=== PATIENT | male | born 1965 | race Caucasian/White ===

== ENCOUNTER → 2021-06-25 12:40 | Outpatient (CLI) | payer OTHER, SELFPAY ==
--- NOTE | ~2021-06-25 | XR_ITS ---
XR hand RT 2V 06/25/2021 12:57 Indication: Right second finger pain after injury 2 weeks ago. Procedure: 3 views right hand Comparison: No prior studies for comparison. Findings: There is an oblique intra-articular fracture proximal aspect of the second proximal phalanx with approximately one cortical bone width ulnar displacement. There is old healed fifth metacarpal fracture. Mild polyarticular osteoarthritis. Impression: 1: Acute oblique intra-articular fracture proximal aspect of the right second proximal phalanx with m ild ulnar displacement. Reviewed, dictated and finalized at location A. [employer] OPERATOR Impression: 1: Acute oblique intra-articular fracture proximal aspect of the right second p roximal phalanx with mild ulnar displacement.
== END ==
PROVIDERS: PCP Nurse Practitioner Family; Visit Provider Nurse Practitioner Family
DX: S62.91XA Unspecified fracture of right hand, initial encounter for closed fracture (principal); X58.XXXA Exposure to other specified factors, initial encounter
CPT/HCPCS: 73120

== ENCOUNTER 2021-06-28 02:59 | Day surgery (SDC) | payer OTHER, SELFPAY ==
--- NOTE | 2021-06-26 15:08 | PC.NURSE ---
Instructions given to [facility] staff Alanna who stated she already has the information, states will being NPO from midnight on and has no medications to take or hold. Staff stated will be brought by guard and the guard will remain with patient for entire visit. Report to the Outpatient Waiting Room, entrance under the green pavilion located off [facility], at time 1100 on date 06/25/2021. OR Time: 1300 your visitor will be asked a series of questions to screen for COVID 19 for your protection. Preoperative COVID Testing Results will be faxed to hospital from [facility] - We recommend that an adult stay with you for 24 hours following discharge. - We also recommend that you do not drive, make important decision, drink alcoholic beverages, or take any drugs that were not prescribed by your health care provider for at least 24 hours after your discharge time. Follow any additional instructions given to you from your surgeon. Telephone instructions given to [facility] staff Alanna and asked if any additional questions and then verbalized understanding. Patient advised to call surgeon office or pre surgery nurse liaison [phone] if any additional questions.
[2021-06-28] VITALS (9 sets, daily range): BP systolic 97–153; BP diastolic 56–93; PULSE 73–116; RESP 10–16; TEMP 36.3; O2SAT 93–99; BMI 24.3
--- NOTE | ~2021-06-28 | XR_ITS ---
EXAMINATION: XR surgery orthopedic EXAM DATE: 06/28/2021 14:01 INDICATION: ORIF RT 2nd Phalanx, proximal phalangeal base intra-articular fracture. TECHNIQUE: Fluoroscopy used during XR surgery orthopedic performed by Dr. Nikolai Davis MD. Radi ologist was not present for the imaging or procedure. Total fluoroscopic time of 240 seconds The D AP for this procedure was 0.68 mGym2. A total of 4 images sent to PACS from the exam. Correlation is made to an x-ray 06/25/2021. FINDINGS: There are 2 orthopedic screws bridging the right 2nd proximal phalangeal base intra-articu lar fracture. Alignment and position is anatomic. Correlate with procedure note. IMPRESSION: Fluoroscopy used during right 2nd proximal phalangeal ORIF. Reviewed, dictated and finalized at location B. PLASTERER
--- NOTE | 2021-06-28 07:14 | WPDHPUPDATE1 ---
History and Physical Update Update Date/Time: 06/28/21 07:14 History and Physical has been reviewed, including an updated exam of the patient. There are NO changes in the patient's condition. Risks, benefits, and alternatives have been discussed and questions answered. Patient agrees to proceed with procedure.
--- NOTE | 2021-06-28 11:24 | P.PNAN_ITS ---
Anes - Initial Pre Proc Eval Procedure: Operation Date: 06/28/21 13:00 Proposed Procedures p Open Reduction Internal Fixation Right Second Finger Proximal Phalanx - Nikolai Davis MD Date/Time: 06/28/21 11:24 Surgeon: Nikolai Davis MD Pre Op Diagnosis: Fx Rt Second Finger Proximal Phalanx Patient Data Age: 56 Gender: M Height: Weight: Allergies Allergy/AdvReac Type Severity Reaction Status Date / Time No Known Allergies Allergy Verified 06/28/21 11:16 Home Medications Medication Instructions Recorded Confirmed Type No Home Medications 06/26/21 06/26/21 History Patient hx anesthesia problems: none Family hx anesthesia problems: none Results Review: All pre-operative results and documents have been reviewed as part of the pre-operative evaluation. [facility] Past Medical History Medical History (Updated 06/28/21 @ 11:25 by Richard Araujo MD) Ex-smoker History of hepatitis C Social History Social History Substance use: unknown Substance use type: unknown Living arrangements: incarcerated Anes - Eval Final PreProcedure Day of Procedure 06/28/21 11:24 Patient weight: normal Heart: regular rate and rhythm Lungs: clear to auscultation Airway: Mallampati scale class II and special considerations poor dentition Neurological: alert and oriented Last oral intake: >/= 8 hours ASA classification: III Emergent: no Anesthetic plan: proceed Anesthesia type and monitoring: general LMA and standard monitoring Results Review: All pre-operative results and documents have been reviewed as part of the pre-operative evaluation. Informed Consent: The patient's anesthetic plan and its attendant risks and benefits were discussed with the patient/family/POA. Questions were solicited and answers provided to the satisfaction of the patient/family/POA.
[2021-06-28] MEDS: LACTATED RINGERS 1,000 ML 30 ML IV CONT ×2 (11:40→14:01)
[2021-06-28] MEDS: KETOROLAC 15 MG/ML VIAL (*BKC) IV PUSH (11:40)
[2021-06-28] MEDS: ACETAMINOPHEN 500 MG TABLET 1000 MG PO (11:40)
[2021-06-28] MEDS: ceFAZolin 2 GM/D5W 50 ML 2 GM/50 ML BAG IVPB (12:24)
--- NOTE | 2021-06-28 14:46 | P.OP_ITS ---
Procedure Note - Detailed Date of Procedure 06/28/21 Pre-op Diagnosis Fx Rt Second Finger Proximal Phalanx Post-op Diagnosis same Procedure Performed Reduction internal fixation with 2 lag screws to the right index proximal phalanx fracture Surgeon Nikolai Davis MD Axle And Frame Mechanic Maisha Jacobson Anesthesia general Indications Acute intra-articular fracture Findings Same Description of Procedure The patient's right index finger was marked near its base as the patient waited in the holding area. He was then taken to the operating room was placed supine on the operating table. Time-out was held and confirmed. He was given general anesthesia and the extremity was prepped and draped in the usual fashion. X- rays were taken to try to orient ourselves as to the plane of the fracture. The digit was blocked with 1% lidocaine with epinephrine. The tourniquet was inflated after exsanguinating the extremity. This was set at 250 mmHg. Tourniquet time was 1:00 hour. The dorsal proximal phalanx incision was made down the midline. The fracture was exposed or accessed laterally sparing the extensor mechanism as much as possible. A 0.028 inch directional wire was passed in the direction I felt would be most useful to us. This we carefully imaged and I accepted the angle and the direction of that C-wire. The 2 mm lag screw was passed just proximal to that. The 2 mm glide hole was drilled followed by the 1.5 mm threaded hole. A 20 mm screw was passed through that after countersinking at the head. This appeared to provide very satisfactory fixation. A 2nd 2 mm lag screw was passed more distally at a slightly different angle. A 14 mm screw was placed at that position. The small incisions through the periosteum and extensor mechanism were not repaired. The skin was closed with a running 4-0 nylon. A padded single digit dorsal bandage was applied and secured to the hand. The patient was discharged from the operating room stable condition. Additional 1% lidocaine with epinephrine had been injected around the finger. This patient had been given Ancef 2 g preop, also Toradol 15 mg and Tylenol 1000 mg.
[2021-06-28] MEDS: fentaNYL CITRATE INJ (*CRX) 100 MCG/2 ML VIAL 25 MCG IV PUSH (14:58)
== END 2021-06-28 16:05 | disposition home or self-care (01) ==
PROVIDERS: PCP Nurse Practitioner Family; Visit Provider Plastic Surgery
PROC: (CPT 26615; principal; 2021-06-28 13:00)
DX: S62.610A Displaced fracture of proximal phalanx of right index finger, initial encounter for closed fracture (principal); X58.XXXA Exposure to other specified factors, initial encounter; Z86.19 Personal history of other infectious and parasitic diseases
CPT/HCPCS: 26735; A4565; A9270; C1713; J0690; J1100; J1170; J1885; J2250; J2405; J2704; J3010; J7120